=== PATIENT | male | born 1965 | race Caucasian/White ===

== ENCOUNTER 2023-04-26 18:14 | Emergency (ER) | payer OTHER ==
[~2023-04-26] VITALS: Ht 157.5 cm; Wt 54.4 kg
[2023-04-26 18:23] VITALS: BP 177/100; PULSE 95; RESP 16; TEMP 98.6; O2SAT 99
[2023-04-26 19:23] VITALS: O2SAT 99
[2023-04-26 19:31] LABS: BASOPHILS % (AUTO) 0.6 % (0.0-2.0); EOSINOPHILS % (AUTO) 0.6 % (0.0-4.0); HEMATOCRIT 36.3 % (36-52); HEMOGLOBIN 12.6 g/dL (12.0-18.0); LYMPHOCYTES # (AUTO) 1.4 K/uL (2.0-11.5); MEAN CORPUSCULAR HEMOGLOBIN 32 pg (27-31); MEAN CORPUSCULAR HGB CONC 35 g/dL (33-37); MONOCYTES # (AUTO) 0.2 K/uL (0.8-1.0); MONOCYTES % (AUTO) 5.3 % (1.7-9.3); NEUTROPHILS # (AUTO) 2.6 K/uL (1.8-7.7); NEUTROPHILS % (AUTO) 61.5 % (42.2-75.2); PLATELET COUNT (AUTO) 216 K/uL (140-450); RED BLOOD CELL COUNT(AUTO) 3.99 MIL/uL (4.20-6.10); RED CELL DISTRIBUTION WIDTH 13.2 % (11.6-13.7); WHITE BLOOD COUNT (AUTO) 4.3 K/uL (4.8-10.8)
[2023-04-26 19:38] LABS: ANION GAP 9.8 (8-16); CALCIUM 8.2 mg/dL (8.5-10.1); CARBON DIOXIDE 24.2 mmol/L (21-32); CREATININE 0.9 mg/dL (0.6-1.3)
[2023-04-26 19:44] LABS: INR 0.83 (0.8-1.2); PARTIAL THROMBOPLASTIN TIME 24.7 secs (22-35.6); PROTHROMBIN TIME 8.8 secs (10.8-13.4)
[2023-04-26 19:48] LABS: ALANINE AMINOTRANSFERASE 59 U/L (12-78); ALBUMIN 1.3 g/dL (3.4-5.0); ALKALINE PHOSPHATASE 149 U/L (50-136); ASPARTATE AMINOTRANSFERASE 49 U/L (15-37); CREATINE KINASE, TOTAL 187 U/L (39-308); TOTAL BILIRUBIN 0.1 mg/dL (0.0-1.0); TOTAL PROTEIN, SERUM 5.8 g/dL (6.4-8.2)
[2023-04-26 19:53] LABS: FLU A ANTIGEN negative (NEGATIVE); FLU B ANTIGEN NEGATIVE (NEGATIVE)
[2023-04-26] MEDS: INSULIN REGULAR, HUMAN 100 UNIT/ML VIAL IV ONE (19:58)
[2023-04-26] MEDS: LABETALOL 20 MG/4 ML VIAL IVP ONE (20:13)
[2023-04-26] MEDS ORDERED: LISI-486 PO (20:40)
[2023-04-26] MEDS ORDERED: METF-346 PO (20:40)
[2023-04-26 20:53] VITALS: BP 173/95; PULSE 89; RESP 15; TEMP 98.2; O2SAT 100
== END 2023-04-26 20:53 | disposition home or self-care (01) ==
LOC: MED 18:14
DX: R07.9 Chest pain, unspecified (principal); Z20.822 Contact with and (suspected) exposure to COVID-19; R22.43 Localized swelling, mass and lump, lower limb, bilateral; R51.9 Headache, unspecified; I10 Essential (primary) hypertension; E11.9 Type 2 diabetes mellitus without complications; Z79.4 Long term (current) use of insulin; Z79.899 Other long term (current) drug therapy
CPT/HCPCS: 36415; 70450; 71045; 80048; 80076; 82550; 83880; 84484; 85025; 85610; 85730; 87426; 87804; 93005; 93970; 96374; 96375; 99285; J1815; J3490; Q0092

== ENCOUNTER 2023-05-10 12:49 | Emergency (ER) | payer OTHER ==
[~2023-05-10] VITALS: Ht 154.9 cm; Wt 58.1 kg
[~2023-05-10 12:49] MED LIST: LISI-486 PO; METF-346 PO
[2023-05-10 13:06] VITALS: BP 197/101; PULSE 89; RESP 18; TEMP 97.9; O2SAT 99
[2023-05-10] MEDS ORDERED: PIPERACILLIN/TAZOBACTAM 3.375 GM VIAL IV ONE (13:31)
[2023-05-10 13:36] LABS: BASOPHILS % (AUTO) 0.5 % (0.0-2.0); EOSINOPHILS # (AUTO) 0.1 K/uL (0-0.4); EOSINOPHILS % (AUTO) 0.9 % (0.0-4.0); HEMATOCRIT 35.2 % (36-52); HEMOGLOBIN 12.2 g/dL (12.0-18.0); LYMPHOCYTES % (AUTO) 15.6 % (20.5-51.1); MEAN CORPUSCULAR HEMOGLOBIN 31 pg (27-31); MEAN CORPUSCULAR HGB CONC 35 g/dL (33-37); MEAN CORPUSCULAR VOLUME 90.2 fL (80-94); MONOCYTES # (AUTO) 0.3 K/uL (0.8-1.0); NEUTROPHILS # (AUTO) 4.9 K/uL (1.8-7.7); PLATELET COUNT (AUTO) 234 K/uL (140-450); RED BLOOD CELL COUNT(AUTO) 3.91 MIL/uL (4.20-6.10); RED CELL DISTRIBUTION WIDTH 13.3 % (11.6-13.7); WHITE BLOOD COUNT (AUTO) 6.3 K/uL (4.8-10.8)
[2023-05-10] MEDS: MORPHINE SULFATE 4 MG/ML SYR IVP ONE (13:51)
[2023-05-10 13:58] LABS: ALBUMIN 1.2 g/dL (3.4-5.0); ANION GAP 6.7 (8-16); CALCIUM 8.7 mg/dL (8.5-10.1); CARBON DIOXIDE 28.1 mmol/L (21-32); POTASSIUM 4.8 mmol/L (3.5-5.1); TOTAL BILIRUBIN 0.2 mg/dL (0.0-1.0); TOTAL PROTEIN, SERUM 5.9 g/dL (6.4-8.2)
[2023-05-10] MEDS: PIPERACILLIN/TAZOBACTAM 3.375 GM in DEXTROSE 5% 50 ML IV ONE (14:04)
[2023-05-10] MEDS: ONDANSETRON 4 MG/2 ML VIAL IVP ONE (14:05)
[2023-05-10] MEDS: NACL 0.9% 1,000 ML IV ONE (14:05)
[2023-05-10] MEDS: INSULIN REGULAR, HUMAN 100 UNIT/ML VIAL SUBQ ONE (14:20)
[2023-05-10] MEDS ORDERED: BACTO TP (14:33)
[2023-05-10] MEDS ORDERED: DOXY-487 PO (14:33)
[2023-05-10] MEDS: BACITRACIN OINT 500 UNITS/GM PKT TP ONE (16:18)
[2023-05-10 16:25] VITALS: BP 177/93; PULSE 71; TEMP 98.3; O2SAT 99
== END 2023-05-10 16:25 | disposition home or self-care (01) ==
LOC: MED 12:49
DX: S61.401A Unspecified open wound of right hand, initial encounter (principal); L03.113 Cellulitis of right upper limb; E11.65 Type 2 diabetes mellitus with hyperglycemia; I10 Essential (primary) hypertension; Z79.899 Other long term (current) drug therapy; X58.XXXA Exposure to other specified factors, initial encounter; Y92.89 Other specified places as the place of occurrence of the external cause; Y93.89 Activity, other specified; Y99.8 Other external cause status
CPT/HCPCS: 36415; 73130; 80053; 82009; 82948; 84484; 85025; 85651; 86140; 90471; 90715; 96365; 96372; 96375; 99284; J1815; J2270; J2543; J7030; J2405